=== PATIENT | female | born 1955 | race Caucasian/White ===

== ENCOUNTER → 2016-05-25 | Outpatient (CLI) | payer OTHER ==
[~2016-05-25] MED LIST: ASPIR-TRIN325 MG PO; DAYPRO600 M1 PO; HUMALOG100 UNIT/2 SQ; LANTUS100 U/ML SC; LANTUS100 U/ML SQ; LIPITOR20 MG PO; METOPROLOL50 MG PO; ROBAXIN750 MG PO; SYNTHROID,LEV175 MCG PO; SYNTHROID0.5 MG PO; VICTOZA6 MG/ML PO; ZESTRIL,PRINIVI10 MG PO
--- NOTE | ~2016-05-25 | ST ---
[place], [place] EXERCISE STRESS TEST REPORT NAME: GURJIT SALCEDO UNIT #: [id number] ROOM: DOCTOR: WHITNEY LOPEZ MD BIRTHDATE: [birth year] DOS: 05/25/2016 Lexiscan portion of the Lexiscan Cardiolite stress test. Baseline cardiogram sinus rhythm with nonspecific ST-T changes. A 0.4 mg of Lexiscan duration of 10 seconds in a 1 minute test duration. The patient did not develop any chest discomfort. No new EKG changes suggesting myocardial injury or infarction. Blood pressure and heart rate response was normal. FINAL IMPRESSION: No EKG changes. No chest discomfort. Blood pressure and heart rate response was normal. Nuclear images will be reported separately. WHITNEY LOPEZ MD CM:STRESS:EXERCISE STRESS TEST REPORT [id number] WHITNEY LOPEZ MD
== END | disposition home or self-care (01) ==
LOC: CARD 02:50
DX: R94.31 Abnormal electrocardiogram [ECG] [EKG] (principal); R53.81 Other malaise